=== PATIENT | male | born 1960 | race Caucasian/White ===

== ENCOUNTER 2017-02-26 21:59 | Inpatient (IN) | payer OTHER ==
[2017-02-26] MEDS ORDERED: ALBUTEROL SO4 6.7 GM HFA INHALER IH PRN (22:46)
--- NOTE | 2017-02-26 22:53 | HP ---
CIWA Score - CIWA Score Nausea/Vomitin-Mild Nausea/No Vomiting Muscle Tremors: 3 Anxiety: 3 Agitation: 3 Paroxysmal Sweats: 3 Orientation: 0-Oriented Tacttile Disturbances: 0-None Auditory Disturbances: 0-None Visual Disturbances: 2-Mild Sensitivity Headache: 0-None Present CIWA-Ar Total Score: 15 Admission ROS BHS - HPI Chief Complaint: WITHDRAWAL SYMPTOMS Allergies/Adverse Reactions: Allergies Allergy/AdvReac Type Severity Reaction Status Date / Time Latex, Natural Rubber Allergy Verified 02/26/17 22:43 History of Present Illness: 56 Y.O. MAN WITH AN EXTENSIVE HISTORY OF ALCOHOL DEPENDENCE IS SEEKING DETOX. THIS IS HIS FIRST TIME IN DETOX. PMH: CABG, HTN, HYPERLIPIDEMIA, DMII, ASTHMA Exam Limitations: Intoxication - Ebola screening Have you traveled outside of the country in the last 21 days: No Have you had contact with anyone from an Ebola affected area: No Do you have a fever: No - Review of Systems Constitutional: Loss of Appetite EENT: reports: Blurred Vision, Tearing Respiratory: reports: Wheezing Cardiac: reports: Chest Pain (ASSOCIATED WITH CABG SX IN 2008), Syncope (ETOH RELATED) GI: reports: Poor Appetite : reports: No Symptoms Reported Musculoskeletal: reports: Back Pain, Joint Pain Integumentary: reports: No Symptoms Reported Neuro: reports: Tremors Endocrine: reports: No Symptoms Reported Hematology: reports: No Symptoms Reported Psychiatric: reports: Mood/Affect Appropiate, Orientated x3, Depressed Other Systems: Reviewed and Negative Patient History - Patient Medical History Hx Anemia: No Hx Asthma: Yes Hx Chronic Obstructive Pulmonary Disease (COPD): No Hx Cancer: No Hx Cardiac Disorders: Yes (CABG-2008) Hx Congestive Heart Failure: No Hx Hypertension: Yes (ON MEDS ) Hx Hypercholesterolemia: Yes (NO MEDS) Hx Pacemaker: No HX Cerebrovascular Accident: No Hx Seizures: No Hx Dementia: No Hx Diabetes: Yes (CONTROLLED WITH DIET ) Hx Gastrointestinal Disorders: Yes (DYSPEPSIA ) Hx Liver Disease: No Hx Genitourinary Disorders: No Hx Sexually Transmitted Disorders: No Hx Renal Disease (ESRD): No Hx Thyroid Disease: No Hx Human Immunodeficiency Virus (HIV): No (NEG ) Hx Hepatitis C: No Hx Depression: Yes Hx Suicide Attempt: No Hx Bipolar Disorder: No Hx Schizophrenia: No - Patient Surgical History Past Surgical History: Yes Hx Neurologic Surgery: No Hx Cataract Extraction: No Hx Cardiac Surgery: Yes (CABG-2009) Hx Lung Surgery: No Hx Breast Surgery: No Hx Breast Biopsy: No Hx Abdominal Surgery: No Hx Appendectomy: No Hx Cholecystectomy: No Hx Genitourinary Surgery: No Hx Orthopedic Surgery: Yes (LEFT HIP REPLACEMENT-2015) Hx Hysterectomy: No Anesthesia Reaction: No - PPD History Previous Implant?: Yes Documented Results: Negative w/o proof PPD to be Administered?: Yes - Reproductive History Patient is a Female of Child Bearing Age (11 -55 yrs old): No - Smoking Cessation Smoking history: Never smoked - Substance & Tx. History Hx Alcohol Use: Yes Hx Substance Use: No Substance Use Type: Alcohol Hx Substance Use Treatment: No - Substances Abused Alcohol Route: Oral Frequency: Daily Amount used: 1 PINT OF LIQUOR Age of first use: 12 Date of Last Use: 02/26/17 Family Disease History - Family Disease History Family Disease History: Diabetes: Sister (OVARIAN; SUBSTANCE USE DISORDER ), CA : Sister, Respiratory: Sister, Other: Sister Admission Physical Exam BHS - Vital Signs Vital Signs: Last Vital Signs Temp Pulse Resp BP Pulse Ox 97.8 F 72 18 157/77 02/26/17 23:14 02/26/17 23:14 02/26/17 23:14 02/26/17 23:14 - Physical General Appearance: Yes: Intoxicated, Obese, Tremorous HEENTM: Yes: Hearing grossly Normal, Normocephalic, Normal Voice Respiratory: Yes: Chest Non-Tender, Lungs Clear, Normal Breath Sounds, No Respiratory Distress, No Accessory Muscle Use Neck: Yes: No masses,lesions,Nodules, Trachea in good position Breast: Yes: Breast Exam Deferred Cardiology: Yes: Regular Rhythm, Regular Rate, S1, S2 Abdominal: Yes: Normal Bowel Sounds, Non Tender, Flat, Soft Genitourinary: Yes: Other (NO COMPLAINTS REPORTED) Back: Yes: Normal Inspection Musculoskeletal: Yes: Gait Steady, Back pain Extremities: Yes: Normal Capillary Refill, Normal Inspection, Normal Range of Motion, Non-Tender, Tremors Neurological: Yes: Alert, Normal Mood/Affect, Normal Response Integumentary: Yes: Normal Color, Dry Lymphatic: Yes: Within Normal Limits - Diagnostic (1) Alcohol dependence with uncomplicated withdrawal Current Visit: Yes Status: Chronic (2) Hypertension Current Visit: Yes Status: Chronic (3) Diabetes type 2, controlled Current Visit: Yes Status: Chronic (4) Hyperlipidemia Current Visit: Yes Status: Chronic (5) Asthma Current Visit: Yes Status: Chronic (6) Hx of CABG Current Visit: Yes Status: Chronic (7) Obesity (BMI 30-39.9) Current Visit: Yes Status: Chronic Cleared for Admission BHS - Detox or Rehab [facility] Level of Care: Medically Managed Detox Regimen/Protocol: Librium BHS Breath Alcohol Content Breath Alcohol Content: 0.072 Vital Signs - Vital Signs Vital Signs Refused: No Temperature: 97.8 F Temperature Source: Oral Pulse Rate: 72 Respiratory Rate: 18 Blood Pressure: 157/77 BP Location: Left Arm Blood Pressure Position: Supine - Height Height: 5 ft 8 in - Weight Weight: 250 lb Weight Measurement Method: Standing Scale Body Mass Index (BMI): 38.0 Urine Drug Screen - Test Device Lot Number: [id number] Expiration Date: 10/27/18 - Control Is Test Valid: Yes - Results Drug Screen Negative: Yes
[2017-02-26] MEDS ORDERED: IBUPROFEN 400 MG TABLET (FP) PO PRN (23:06)
[2017-02-26] MEDS ORDERED: hydrOXYzine PAMOATE 50 MG CAPSULE (FP) PO PRN (23:06)
[2017-02-26] MEDS ORDERED: MENTHOL/PHENOL 1 EACH UD MM PRN (23:06)
[2017-02-26] MEDS ORDERED: MAGNESIUM CITRATE 300 ML BOTTLE PO PRN (23:06)
[2017-02-26] MEDS ORDERED: ACETAMINOPHEN 325 MG TABLET (FP) PO PRN (23:06)
[2017-02-26] MEDS ORDERED: guaiFENesin/D-METHORPHAN HB 10 ML UNIT-DOSE CUPS PO PRN (23:06)
[2017-02-26] MEDS ORDERED: MAG HYDROX/AL HYDROX/SIMETH 30 ML UNIT-DOSE CUP PO PRN (23:06)
[2017-02-26] MEDS ORDERED: LOPERAMIDE HCL 2 MG CAPSULE PO PRN (23:06)
[2017-02-26] MEDS ORDERED: MAGNESIUM HYDROX 2400MG/30ML ORAL SUSPENSION 30 ML CUP PO PRN (23:06)
[2017-02-26] MEDS ORDERED: P-EPHED 60MG/TRIPROLIDI 2.5MG TABLET PO PRN (23:06)
[2017-02-26 23:14] VITALS: BMI 38.0
[2017-02-27] MEDS ORDERED: chlordiazePOXIDE HCL 25 MG CAPSULE PO PRN (00:05)
[2017-02-27] MEDS ORDERED: chlordiazePOXIDE HCL 25 MG CAPSULE PO ONE (00:05)
[2017-02-27] MEDS: diphenhydrAMINE HCL 50 MG CAPSULE PO PRN ×2 (01:16→22:00)
[2017-02-27] MEDS: chlordiazePOXIDE HCL 25 MG CAPSULE PO SCH ×4 (05:38→22:00)
[2017-02-27] MEDS ORDERED: ALBUTEROL SO4 6.7 GM HFA INHALER IH ONE (08:28)
[2017-02-27] MEDS: PRENATAL VITAMINS W/ FOLIC ACID TABLET (FP) PO SCH (10:07)
[2017-02-27] MEDS: HYDROCHLOROTHIAZIDE 25 MG TABLET (FP) PO SCH (10:07)
[2017-02-27 10:26] LABS: MCH 30.9 pg (25.7-33.7); MCHC 34.1 g/dl (32.0-35.9); MEAN CELL VOLUME 90.6 fl (80-96); MEAN PLT VOLUME 8.2 fl (7.5-11.1); PLATELET COUNT 102 K/MM3 (134-434); RDW 12.7 % (11.9-15.9); WHITE BLOOD COUNT 4.2 K/mm3 (4.0-10.0)
[2017-02-27 10:52] LABS: ALBUMIN 3.6 g/dl (3.4-5.0); ALK PHOS 53 U/L (45-117); ANION GAP 15 (8-16); BILIRUBIN,TOTAL 0.7 mg/dL (0.2-1.0); CALCIUM 8.9 mg/dL (8.5-10.1); CO2 32 mmol/L (21-32); CREATININE 1.1 mg/dL (0.7-1.3); GLUCOSE,RANDOM 141 mg/dL (74-106); SGOT/AST 25 U/L (15-37); SGPT/ALT 51 U/L (12-78); TOT PROT 6.6 g/dl (6.4-8.2)
[2017-02-27 11:13] LABS: HIV 1 & 2 AB NEGATIVE; HIV 1 AGp24 NEGATIVE
[2017-02-27] MEDS: ASPIRIN COATED 81 MG TABLET.EC PO SCH (12:55)
[2017-02-27] MEDS: VALSARTAN 160 MG TABLET (UD) PO SCH (12:55)
[2017-02-27] MEDS: ATENOLOL 50 MG TABLET (FP) PO SCH (12:55)
--- NOTE | 2017-02-27 13:01 | PN ---
[facility] CIWA - CIWA Score Nausea/Vomitin-Mild Nausea/No Vomiting Muscle Tremors: 4-Moderate,w/Arms Extend Anxiety: 4-Mod. Anxious/Guarded Agitation: 4-Moderately Restless Paroxysmal Sweats: No Perspiration Orientation: 0-Oriented Tacttile Disturbances: 1-Very Mild Itch/Numbness Auditory Disturbances: 0-None Visual Disturbances: 0-None Headache: 2-Mild CIWA-Ar Total Score: 16 BHS Progress Note (SOAP) Subjective: Nausea, tremor, anxiety, interrupted sleep Objective: 02/27/17 12:57 Last Vital Signs Temp Pulse Resp BP Pulse Ox 97.9 F 77 18 169/94 02/27/17 09:40 02/27/17 09:40 02/27/17 09:40 02/27/17 09:40 Laboratory Tests 02/27/17 02/27/17 02/27/17 05:39 07:45 07:45 WBC 4.2 RBC 4.15 Hgb 12.8 Hct 37.6 MCV 90.6 MCHC 34.1 RDW 12.7 Plt Count 102 L MPV 8.2 Sodium 137 Potassium 3.0 L Chloride 90 L Carbon Dioxide 32 Anion Gap 15 BUN 25 H Creatinine 1.1 Creat Clearance w eGFR > 60 POC Glucometer 137 Random Glucose 141 H Calcium 8.9 Total Bilirubin 0.7 AST 25 ALT 51 Alkaline Phosphatase 53 Total Protein 6.6 Albumin 3.6 RPR Titer HIV 1&2 Antibody Screen HIV P24 Antigen 02/27/17 02/27/17 07:45 07:45 WBC RBC Hgb Hct MCV MCHC RDW Plt Count MPV Sodium Potassium Chloride Carbon Dioxide Anion Gap BUN Creatinine Creat Clearance w eGFR POC Glucometer Random Glucose Calcium Total Bilirubin AST ALT Alkaline Phosphatase Total Protein Albumin RPR Titer Nonreactive HIV 1&2 Antibody Screen Negative HIV P24 Antigen Negative Labs noted: K 3.0, BUN 25, serum glucose 141 Assessment: 02/27/17 12:59 Withdrawal symptoms Noted with Hypokalemia, azotemia and hyperglycemia secondary to DMT2 Plan: Continue detox Hypokalemia: K DUR 40 Meq x 2 doses, repeat BMP in AM Azotemia: encouraged to drink lots of water (at least 8 cups/day) Hyperglycemia secondary to DMT2: resume metformin 500mg PO BID, diabetic diet, start insulin lispro sliding scale with coverage, finger stick ac meal, follow up on UA result
[2017-02-27] MEDS ORDERED: POTASSIUM CHLORIDE TABS 20 MEQ TABLET.ER (FP) PO ONE ×2 (13:11→20:00)
[2017-02-27] MEDS ORDERED: INSULIN (NOVOLOG) ASPART 100 UNITS/ML 10ML VIAL ONE (17:05)
[2017-02-27] MEDS: metFORMIN HCL 500 MG TABLET (FP) PO SCH (17:20)
[2017-02-27] MEDS: INSULIN SLIDING SCALE (NOVOLOG) 1 VIAL SQ SCH (17:24)
[2017-02-27] MEDS: THIAMINE HCL 100 MG TABLET (FP) PO SCH (22:00)
[2017-02-28] MEDS: chlordiazePOXIDE HCL 25 MG CAPSULE PO SCH ×4 (05:43→22:03)
[2017-02-28] MEDS ORDERED: INSULIN (NOVOLOG) ASPART 100 UNITS/ML 10ML VIAL ONE ×2 (07:59→11:40)
[2017-02-28] MEDS: metFORMIN HCL 500 MG TABLET (FP) PO SCH ×2 (08:01→17:23)
[2017-02-28] MEDS: INSULIN SLIDING SCALE (NOVOLOG) 1 VIAL SQ SCH ×3 (08:02→16:36)
[2017-02-28 09:52] LABS: CALCIUM 9.7 mg/dL (8.5-10.1)
[2017-02-28 09:53] LABS: CREATININE 1.2 mg/dL (0.7-1.3)
--- NOTE | 2017-02-28 10:12 | PN ---
S CIWA - CIWA Score Nausea/Vomitin-No Nausea/No Vomiting Muscle Tremors: 3 Anxiety: 4-Mod. Anxious/Guarded Agitation: 3 Paroxysmal Sweats: 3 Orientation: 0-Oriented Tacttile Disturbances: 0-None Auditory Disturbances: 0-None Visual Disturbances: 0-None Headache: 0-None Present CIWA-Ar Total Score: 13 BHS Progress Note (SOAP) Subjective: Anxiety,tremors,sweating,interrupted sleep,restless Objective: 02/28/17 10:10 Vital Signs - 8 hr 02/28/17 02/28/17 02/28/17 03:30 06:23 09:32 Temperature 95.7 F L 97.3 F L Pulse Rate 72 80 Respiratory 18 18 18 Rate Blood Pressure 155/99 129/89 Laboratory Tests 02/27/17 02/27/17 02/27/17 05:39 07:45 07:45 WBC 4.2 RBC 4.15 Hgb 12.8 Hct 37.6 MCV 90.6 MCHC 34.1 RDW 12.7 Plt Count 102 L MPV 8.2 Sodium 137 Potassium 3.0 L Chloride 90 L Carbon Dioxide 32 Anion Gap 15 BUN 25 H Creatinine 1.1 Creat Clearance w eGFR > 60 POC Glucometer 137 Random Glucose 141 H Calcium 8.9 Total Bilirubin 0.7 AST 25 ALT 51 Alkaline Phosphatase 53 Total Protein 6.6 Albumin 3.6 RPR Titer HIV 1&2 Antibody Screen HIV P24 Antigen 02/27/17 02/27/17 02/27/17 07:45 07:45 16:45 WBC RBC Hgb Hct MCV MCHC RDW Plt Count MPV Sodium Potassium Chloride Carbon Dioxide Anion Gap BUN Creatinine Creat Clearance w eGFR POC Glucometer 315 Random Glucose Calcium Total Bilirubin AST ALT Alkaline Phosphatase Total Protein Albumin RPR Titer Nonreactive HIV 1&2 Antibody Screen Negative HIV P24 Antigen Negative 02/28/17 02/28/17 05:42 07:00 WBC RBC Hgb Hct MCV MCHC RDW Plt Count MPV Sodium 139 Potassium 3.9 D Chloride 97 L Carbon Dioxide 33 H Anion Gap 9 BUN 22 H Creatinine 1.2 Creat Clearance w eGFR POC Glucometer 210 Random Glucose 198 H D Calcium 9.7 Total Bilirubin AST ALT Alkaline Phosphatase Total Protein Albumin RPR Titer HIV 1&2 Antibody Screen HIV P24 Antigen labs noted Assessment: 02/28/17 10:11 Withdrawal sx. Plan: Continue detox
[2017-02-28] MEDS: VALSARTAN 160 MG TABLET (UD) PO SCH (10:14)
[2017-02-28] MEDS: ASPIRIN COATED 81 MG TABLET.EC PO SCH (10:14)
[2017-02-28] MEDS: PRENATAL VITAMINS W/ FOLIC ACID TABLET (FP) PO SCH (10:15)
[2017-02-28] MEDS: HYDROCHLOROTHIAZIDE 25 MG TABLET (FP) PO SCH (10:15)
[2017-02-28] MEDS: ATENOLOL 50 MG TABLET (FP) PO SCH (10:17)
--- NOTE | 2017-02-28 10:38 | CONSULT ---
[facility] Psychiatric Consult - Data Date of interview: 02/28/17 Admission source: [facility] Identifying data: First admission to [facility] for this 56 y/o male seeking detox for alcohol dependence.Patient is single,a father of two, domiciled and self-employed. Substance Abuse History: - Smoking Cessation. Smoking history: Never smoked. - Substance & Tx. History. Hx Alcohol Use: Yes. Hx Substance Use: No. Substance Use Type: Alcohol. Hx Substance Use Treatment: No. - Substances Abused. Alcohol. Route: Oral. Frequency: Daily. Amount used: 1 PINT OF LIQUOR. Age of first use: 12. Date of Last Use: 02/26/17. Confirmed by patient. Medical History: Hypertension,hypercholesterolemia,diabetes mellitus,bronchial asthma,obesity and a history of CABG in 2008.Noted report of left hip replacement (2014). Psychiatric History: Patient denies history of psychiatric hospitalizations.He does,however,sees a private psychiatrist for psychotherapy in [facility].Diagnosis : patient does not recall.Mr Pearson admits to one suicide attempt (overdose with alcohol). Physical/Sexual Abuse/Trauma History: Patient denies. Additional Comment: Drug Screen Negative: Yes .Noted. Mental Status Exam - Mental Status Exam Alert and Oriented to: Time, Place, Person Cognitive Function: Good Patient Appearance: Disheveled Mood: Hopeful, Euthymic Affect: Appropriate, Normal Range Patient Behavior: Fatigued, Appropriate, Cooperative Speech Pattern: Clear Voice Loudness: Normal Thought Process: Goal Oriented Thought Disorder: Not Present Hallucinations: Denies Suicidal Ideation: Denies Homicidal Ideation: Denies Insight/Judgement: Poor Sleep: Well Appetite: Good Muscle strength/Tone: Normal Gait/Station: Normal Psychiatric Findings - Problem List ([place] 1, 2,3) (1) Alcohol dependence with uncomplicated withdrawal Current Visit: Yes Status: Chronic (2) Asthma Current Visit: Yes Status: Chronic (3) Diabetes type 2, controlled Current Visit: Yes Status: Chronic (4) Hx of CABG Current Visit: Yes Status: Chronic (5) Hyperlipidemia Current Visit: Yes Status: Chronic (6) Hypertension Current Visit: Yes Status: Chronic (7) Obesity (BMI 30-39.9) Current Visit: Yes Status: Chronic - Initial Treatment Plan Initial Treatment Plan: Psychoeducation.Detoxification.Observation.
[2017-02-28] MEDS: diphenhydrAMINE HCL 50 MG CAPSULE PO PRN (22:03)
[2017-02-28] MEDS: THIAMINE HCL 100 MG TABLET (FP) PO SCH (22:03)
[2017-02-28] MEDS ORDERED: cloNIDine HCL 0.1 MG TABLET PO ONE (22:06)
[2017-03-01] MEDS: chlordiazePOXIDE 5 MG CAPSULE PO SCH ×4 (05:33→22:01)
[2017-03-01] MEDS ORDERED: INSULIN (NOVOLOG) ASPART 100 UNITS/ML 10ML VIAL ONE ×2 (07:27→11:43)
[2017-03-01] MEDS: INSULIN SLIDING SCALE (NOVOLOG) 1 VIAL SQ SCH ×3 (07:41→17:14)
[2017-03-01] MEDS: metFORMIN HCL 500 MG TABLET (FP) PO SCH ×2 (07:41→17:11)
--- NOTE | 2017-03-01 09:54 | PN ---
BHS Progress Note (SOAP) Subjective: Sweating,interrupted sleep,restless Objective: 03/01/17 09:53 Vital Signs - 8 hr 03/01/17 03/01/17 03/01/17 03:28 06:07 09:26 Temperature 97.3 F L 98.0 F Pulse Rate 96 H 90 Respiratory 18 18 20 Rate Blood Pressure 135/75 121/72 Laboratory Last Values WBC 4.2 K/mm3 (4.0-10.0) 02/27/17 07:45 RBC 4.15 M/mm3 (4.00-5.60) 02/27/17 07:45 Hgb 12.8 GM/dL (11.7-16.9) 02/27/17 07:45 Hct 37.6 % (35.4-49) 02/27/17 07:45 MCV 90.6 fl (80-96) 02/27/17 07:45 MCHC 34.1 g/dl (32.0-35.9) 02/27/17 07:45 RDW 12.7 % (11.9-15.9) 02/27/17 07:45 Plt Count 102 K/MM3 (134-434) L 02/27/17 07:45 MPV 8.2 fl (7.5-11.1) 02/27/17 07:45 Sodium 139 mmol/L (136-145) 02/28/17 07:00 Potassium 3.9 mmol/L (3.5-5.1) D 02/28/17 07:00 Chloride 97 mmol/L (98-107) L 02/28/17 07:00 Carbon Dioxide 33 mmol/L (21-32) H 02/28/17 07:00 Anion Gap 9 (8-16) 02/28/17 07:00 BUN 22 mg/dL (7-18) H 02/28/17 07:00 Creatinine 1.2 mg/dL (0.7-1.3) 02/28/17 07:00 Creat Clearance w eGFR > 60 (>60) 02/27/17 07:45 POC Glucometer 231 UNITS (()) 03/01/17 05:32 Random Glucose 198 mg/dL (74-106) H D 02/28/17 07:00 Calcium 9.7 mg/dL (8.5-10.1) 02/28/17 07:00 Total Bilirubin 0.7 mg/dL (0.2-1.0) 02/27/17 07:45 AST 25 U/L (15-37) 02/27/17 07:45 ALT 51 U/L (12-78) 02/27/17 07:45 Alkaline Phosphatase 53 U/L (45-117) 02/27/17 07:45 Total Protein 6.6 g/dl (6.4-8.2) 02/27/17 07:45 Albumin 3.6 g/dl (3.4-5.0) 02/27/17 07:45 RPR Titer Nonreactive (NONREACTIVE) 02/27/17 07:45 Hepatitis C Antibody <0.1 s/co ratio (0.0-0.9) 02/27/17 07:45 HIV 1&2 Antibody Screen Negative 02/27/17 07:45 HIV P24 Antigen Negative 02/27/17 07:45 labs noted Assessment: 03/01/17 09:53 Withdrawal sx. Plan: Continue detox
[2017-03-01] MEDS: PRENATAL VITAMINS W/ FOLIC ACID TABLET (FP) PO SCH (10:30)
[2017-03-01] MEDS: ATENOLOL 50 MG TABLET (FP) PO SCH (10:31)
[2017-03-01] MEDS: HYDROCHLOROTHIAZIDE 25 MG TABLET (FP) PO SCH (10:32)
[2017-03-01] MEDS: ASPIRIN COATED 81 MG TABLET.EC PO SCH (10:32)
[2017-03-01] MEDS: VALSARTAN 160 MG TABLET (UD) PO SCH (10:32)
[2017-03-01] MEDS: THIAMINE HCL 100 MG TABLET (FP) PO SCH (22:00)
[2017-03-01] MEDS: diphenhydrAMINE HCL 50 MG CAPSULE PO PRN (22:01)
--- NOTE | 2017-03-01 22:54 | EKG ---
Test Reason : Blood Pressure : / mmHG Vent. Rate : 075 BPM Atrial Rate : 075 BPM P-R Int : 142 ms QRS Dur : 098 ms QT Int : 408 ms P-R-T Axes : 066 046 062 degrees QTc Int : 455 ms NORMAL SINUS RHYTHM POSSIBLE LEFT ATRIAL ENLARGEMENT BORDERLINE ECG NO PREVIOUS ECGS AVAILABLE Confirmed by ANDREWS JC, ORLY ([id number]) on 03/01/2017 10:53:33 PM Referred By: Confirmed By:ORLY SPARROW MD
[2017-03-02] MEDS ORDERED: chlordiazePOXIDE HCL 10 MG CAPSULE PO SCH (05:00)
[2017-03-02 06:03] VITALS: BP 148/89; PULSE 76; TEMP 96.5
[2017-03-02] MEDS: metFORMIN HCL 500 MG TABLET (FP) PO SCH (06:15)
[2017-03-02] MEDS ORDERED: INSULIN (NOVOLOG) ASPART 100 UNITS/ML 10ML VIAL ONE (07:36)
[2017-03-02] MEDS: INSULIN SLIDING SCALE (NOVOLOG) 1 VIAL SQ SCH (07:39)
--- NOTE | 2017-03-02 11:54 | DS ---
[facility] Detox Discharge Summary Admission Date: 02/26/17 Discharge Date: 03/02/17 - History Present History: Alcohol Dependence Additional Comments: DETOX COMPLETED. ALERT O X 3. NAD. PT REMINDED TO F/U WITH PMD AT [facility] FOR MANAGEMENT OF COMORBID CONDITIONS. Pertinent Past History: ASTHMA DM HTN S/P CABG HYPERLIPIDEMIA - Physical Exam Results Vital Signs: Vital Signs Temperature 96.5 F L 03/02/17 06:03 Pulse Rate 76 03/02/17 06:03 Respiratory Rate 18 03/02/17 06:03 Blood Pressure 148/89 03/02/17 06:03 O2 Sat by Pulse Oximetry (%) Pertinent Admission Physical Exam Findings: WITHDRAWAL SX - Treatment Hospital Course: Detox Protocol Followed, Detoxed Safely, Responded well, Discharged Condition Good, Rehab Referral Accepted Patient has Accepted a Rehab Referral to: [facility] OPD - Medication Discharge Medications: Ambulatory Orders Albuterol Sulfate Inhaler - [Ventolin Hfa Inhaler -] 2 inh PO Q4H PRN 02/27/17 Atenolol [Tenormin -] 100 mg PO DAILY 02/27/17 Cholecalciferol (Vitamin D3) [Vitamin D3 -] 400 unit PO DAILY 02/27/17 Hydrochlorothiazide 25 mg PO DAILY 02/27/17 Valsartan [Diovan] 320 mg PO DAILY 02/27/17 - Diagnosis (1) Alcohol dependence with uncomplicated withdrawal Status: Acute (2) Asthma Status: Chronic Qualifiers: Asthma severity: mild intermittent Asthma complication type: uncomplicated Qualified Code(s): J45.20 - Mild intermittent asthma, uncomplicated (3) Diabetes type 2, controlled Status: Chronic (4) Hx of CABG Status: Chronic (5) Hyperlipidemia Status: Chronic (6) Hypertension Status: Chronic (7) Obesity (BMI 30-39.9) Status: Chronic - AMA Did Patient Leave Against Medical Advice: No
== END 2017-03-02 09:08 | disposition home or self-care (01) | DRG 897 ==
LOC: YASAS 21:59 → Y3N 22:02
PROVIDERS: ADMIT Internal Medicine; ATTEND Internal Medicine
PROC: HZ2ZZZZ Detoxification Services for Substance Abuse Treatment (ICD-10-PCS; principal; 2017-02-26)
DX: F10.230 Alcohol dependence with withdrawal, uncomplicated (principal); I10 Essential (primary) hypertension; J45.20 Mild intermittent asthma, uncomplicated; E11.65 Type 2 diabetes mellitus with hyperglycemia; E78.5 Hyperlipidemia, unspecified; E87.6 Hypokalemia; E66.9 Obesity, unspecified; R79.89 Other specified abnormal findings of blood chemistry; Z68.38 Body mass index [BMI] 38.0-38.9, adult; Z96.642 Presence of left artificial hip joint
CPT/HCPCS: 36415; 80048; 80053; 81003; 85027; 86593; 87389; 93005; 93010